=== PATIENT | female | born 1970 | race Caucasian/White ===

== ENCOUNTER 2017-10-11 08:51 | Day surgery (SDC) | payer BC ==
[~2017-10-11] VITALS: Ht 162.6 cm; Wt 60.3 kg
[~2017-10-11 08:51] MED LIST: KLONOPIN0.5 M1 PO; LIPITOR10 MG PO; LO-DOSE ASPIRIN81 M1 PO
[2017-10-11 09:22] VITALS: BP 120/65
[2017-10-11 09:56] LABS: INTER. NORMALIZED RATIO 0.9
[2017-10-11 09:58] LABS: BASOPHIL (%) 0.5 % (0-1); EOSINOPHIL COUNT 0.1 K/uL (0-0.3); HEMATOCRIT 37.7 % (36.0-46.0); HEMOGLOBIN 12.4 G/DL (11.9-15.5); LYMPHOCYTE (%) 14.7 % (15-42); LYMPHOCYTE COUNT 1.2 K/uL (1.0-2.8); MCH 32.4 PG (29.0-34.0); MCHC 32.9 G/DL (30.0-36.0); MCV 98.4 FL (83-99); MONOCYTE (%) 9.4 % (3-12); MONOCYTE COUNT 0.8 K/uL (0-0.8); NEUTROPHIL (%) 73.4 % (45-76); PLATELET COUNT 212 K/uL (156-360); RBC DIS.WIDTH-CV 13.2 % (11.8-14.6); RBC DIS.WIDTH-SD 46.7 % (39-53); RED BLOOD COUNT 3.83 M/uL (3.80-5.20); WHITE BLOOD COUNT 8.2 K/uL (4.1-10.2)
[2017-10-11 09:59] LABS: PTT 25.5 SEC (25-37)
[2017-10-11] MEDS ORDERED: IBUPROFEN800 MG PO (13:21)
[2017-10-11] MEDS ORDERED: ENDOCET 5-3251 EACH PO (13:21)
[2017-10-11 14:52] VITALS: BP 127/85
[2017-10-11 16:03] VITALS: BP 129/76
== END 2017-10-11 16:15 | disposition home or self-care (01) ==
LOC: SDC 08:51
PROVIDERS: Obstetrics & Gynecology
DX: N93.9 Abnormal uterine and vaginal bleeding, unspecified (principal); N84.0 Polyp of corpus uteri; Z30.2 Encounter for sterilization; Z86.711 Personal history of pulmonary embolism; Z86.718 Personal history of other venous thrombosis and embolism; Z79.82 Long term (current) use of aspirin; E78.2 Mixed hyperlipidemia; F41.1 Generalized anxiety disorder; I10 Essential (primary) hypertension; Z80.3 Family history of malignant neoplasm of breast; Z82.49 Family history of ischemic heart disease and other diseases of the circulatory system; Z83.49 Family history of other endocrine, nutritional and metabolic diseases; Z80.42 Family history of malignant neoplasm of prostate; Z80.8 Family history of malignant neoplasm of other organs or systems
CPT/HCPCS: 84702; 85025; 85610; 85730; 86850; 86900; 86901; 88302; 88305; J0131; J1100; J1170; J2250; J3010; S0020